=== PATIENT | female | born 1960 | race Caucasian/White ===

== ENCOUNTER 2018-08-11 10:52 | Emergency (ER) | payer MEDICAID ==
[~2018-08-11] VITALS: Ht 157.5 cm; Wt 59.0 kg
[~2018-08-11 10:52] MED LIST: EPIN0.3P3 IM
[2018-08-11 11:05] VITALS: BP 157/119
--- NOTE | 2018-08-11 12:46 | NUR ---
PT CALLED X3 TO TRIAGE, PROVIDER NOTIFIED, NO FURTHER ACTION REQUIRED
== END 2018-08-11 12:48 | disposition left against medical advice (07) ==
LOC: ER 10:55
DX: R07.89 Other chest pain (principal); Z53.21 Procedure and treatment not carried out due to patient leaving prior to being seen by health care provider
CPT/HCPCS: 93005

== ENCOUNTER 2024-03-03 09:18 | Emergency (ER) | payer MEDICAID, MEDICARE ==
[~2024-03-03] VITALS: Ht 157.5 cm; Wt 61.4 kg
[2024-03-03] MEDS ORDERED: ketorolac trometh. 30mg/ml inj. IM ONE (10:30)
[2024-03-03] MEDS: ondansetron 4mg/5ml UD cup PO ONE (10:42)
[2024-03-03] MEDS: ketorolac tromethamine 15mg/ml inj. IM ONE (10:42)
[2024-03-03 10:52] LABS: ALANINE AMINOTRANSFERASE 23 U/L (12-78); ALBUMIN 3.3 G/DL (3.4-5.0); ALBUMIN/GLOBULIN RATIO 0.7 (1.1-1.5); ALKALINE PHOSPHATASE 78 IU/L (46-116); ANION GAP 9 (8-16); ASPARTATE AMINO TRANSFERASE 14 U/L (10-37); BILIRUBIN,TOTAL 1.2 MG/DL (0.1-1.0); BLOOD UREA NITROGEN 8 MG/DL (7-18); BUN/CREATININE RATIO 11.3 (10.0-20.0); CALCIUM 9.3 MG/DL (8.5-10.1); CHLORIDE 102 MMOL/L (99-107); CREATININE 0.71 MG/DL (0.40-0.90); GLUCOSE 109 MG/DL (70-104); POTASSIUM 3.5 MMOL/L (3.5-5.1); SODIUM 137 MMOL/L (135-145); TOTAL CARBON DIOXIDE 25.9 MMOL/L (24-32); eCRCL 62 ML/MIN; eGFR 83 ML/MIN
[2024-03-03] MEDS ORDERED: GABA-530 PO (12:39)
[2024-03-03] MEDS ORDERED: CARV-50 PO (12:39)
[2024-03-03] MEDS ORDERED: SYN0.088T PO (12:39)
[2024-03-03] MEDS ORDERED: VENL25TA48 PO (12:39)
[2024-03-03] MEDS ORDERED: LOSA1TAB39 PO (12:39)
[2024-03-03] MEDS ORDERED: VERA120T19 PO (12:39)
[2024-03-03] MEDS ORDERED: ATOR20TA66 PO (12:39)
[2024-03-03 12:44] LABS: BILIRUBIN,URINE NEGATIVE (Neg); CLARITY,URINE CLEAR (Clear); COLOR,URINE YELLOW (Yellow); GLUCOSE, URINE NEGATIVE (Neg); KETONES,URINE 15 mg/dl (Neg); LEUKOCYTE ESTERASE ,URINE NEGATIVE (Neg); NITRITES, URINE NEGATIVE (Neg); OCCULT BLOOD,URINE NEGATIVE (Neg); PROTEIN,URINE NEGATIVE (Neg); UROBILINOGEN,URINE 0.2 E.U/dL (0.2-1.0)
[2024-03-03 12:45] LABS: PH,URINE 5.5 (4.8-8.0)
[2024-03-03 12:57] LABS: UA COLLECTION TYPE CLN CATCH MIDSTREAM
[2024-03-03 12:59] LABS: BASOPHILS # (AUTO) 0.1 X10'3 (0-1); BASOPHILS % 1 % (0-2); EOSINOPHILS % (AUTO) 0 % (0-6); HEMATOCRIT 38.7 % (37.7-47.9); HEMOGLOBIN 12.9 G/DL (11.5-16.0); LYMPHOCYTES # (AUTO) 0.9 X10'3 (1.1-4.8); LYMPHOCYTES % 9 % (24-44); MEAN CORPUSCULAR HEMOGLOBIN 32.4 PG (27-31.2); MEAN CORPUSCULAR HGB CONC 33.4 % (32-36); MONOCYTES # (AUTO) 0.8 X10'3 (0-0.9); MONOCYTES % 8 % (0-12); NEUTROPHILS # (AUTO) 8.4 X10'3 (1.8-7.7); PLATELET COUNT 284 X10'3 (130-400); RED BLOOD COUNT 3.99 X10'6 (3.60-4.90); RED CELL DISTRIBUTION WIDTH 12.5 % (11-16); SEGMENTED NEUTROPHILS % 82 % (36-66); WHITE BLOOD COUNT 10.3 X10'3 (4.5-11.0)
[2024-03-03 15:06] VITALS: TEMP 97.6
[2024-03-03] MEDS ORDERED: CYCL-394 PO (16:03)
[2024-03-03] MEDS ORDERED: IBUP-1985 PO (16:03)
[2024-03-03 16:05] VITALS: BP 118/80; PULSE 67; RESP 18; O2SAT 98
== END 2024-03-03 16:18 | disposition home or self-care (01) ==
LOC: ER 09:19
DX: M54.50 Low back pain, unspecified (principal); Z88.8 Allergy status to other drugs, medicaments and biological substances; Z79.899 Other long term (current) drug therapy; Z79.1 Long term (current) use of non-steroidal anti-inflammatories (NSAID); Z98.51 Tubal ligation status; Z72.89 Other problems related to lifestyle
CPT/HCPCS: 36415; 74176; 80053; 81003; 85025; 96372; 99285; J1885

== ENCOUNTER 2024-05-08 18:59 | Emergency (ER) | payer MEDICARE ==
[~2024-05-08] VITALS: Ht 157.5 cm; Wt 58.9 kg
[~2024-05-08 18:59] MED LIST changes: +IBUP-1985 PO
[2024-05-08 19:00] VITALS: BP 109/67; PULSE 100; RESP 16; TEMP 98; O2SAT 99
[2024-05-08 19:59] LABS: BASOPHILS # (AUTO) 0.1 X10'3 (0-0.2); BASOPHILS % (AUTO) 1.3 % (0-1); EOSINOPHILS # (AUTO) 0.3 X10'3 (0-0.9); EOSINOPHILS % (AUTO) 5.2 % (0-6); HEMATOCRIT 36.8 % (35.0-45.0); HEMOGLOBIN 12.2 g/dl (12.0-16.0); LYMPHOCYTES # (AUTO) 1.7 X10'3 (1.1-4.8); MEAN CORPUSCULAR HEMOGLOBIN 31.9 PG (27.0-31.0); MEAN CORPUSCULAR HGB CONC 33.3 g/dL (33.0-36.5); MEAN CORPUSCULAR VOLUME 95.8 FL (78-98); MEAN PLATELET VOLUME 8.5 FL (7.4-10.4); MONOCYTES # (AUTO) 0.5 X10'3 (0-0.9); MONOCYTES % (AUTO) 7.4 % (2-12); NEUTROPHILS # (AUTO) 3.8 X10'3 (1.8-7.7); NEUTROPHILS % (AUTO) 59.1 % (42-75); PLATELET COUNT 298 X10'3 (140-440); RED BLOOD COUNT 3.84 X10'6 (4.20-5.60); RED CELL DISTRIBUTION WIDTH 13.8 % (11.5-14.5); WHITE BLOOD COUNT 6.4 X10'3 (4.5-11.0)
[2024-05-08] MEDS ORDERED: LOPE-144 PO (20:01)
[2024-05-08 20:02] LABS: ALANINE AMINOTRANSFERASE 24 U/L (12-78); ALBUMIN 3.4 G/DL (3.4-5.0); ALKALINE PHOSPHATASE 73 IU/L (46-116); ANION GAP 10 (8-16); ASPARTATE AMINO TRANSFERASE 13 U/L (10-37); BILIRUBIN,TOTAL 0.4 MG/DL (0.1-1.0); BLOOD UREA NITROGEN 13 MG/DL (7-18); BUN/CREATININE RATIO 19.4 (10.0-20.0); CHLORIDE 107 MMOL/L (99-107); CREATININE 0.67 MG/DL (0.40-0.90); GLUCOSE 100 MG/DL (70-104); POTASSIUM 4.1 MMOL/L (3.5-5.1); SODIUM 141 MMOL/L (135-145); TOTAL CARBON DIOXIDE 24.5 MMOL/L (24-32); TOTAL PROTEIN 6.7 G/DL (6.4-8.2); eCRCL 66 ML/MIN; eGFR 88 ML/MIN
[2024-05-08] MEDS: loperamide 2mg capsule PO ONE (20:50)
== END 2024-05-08 21:09 | disposition home or self-care (01) ==
LOC: ER 18:59
DX: R19.7 Diarrhea, unspecified (principal); Z88.8 Allergy status to other drugs, medicaments and biological substances; Z79.1 Long term (current) use of non-steroidal anti-inflammatories (NSAID); Z98.51 Tubal ligation status; Z72.89 Other problems related to lifestyle
CPT/HCPCS: 36415; 80053; 85025; 99283

== ENCOUNTER 2024-06-13 07:47 | Emergency (ER) | payer MEDICARE ==
[~2024-06-13] VITALS: Ht 157.5 cm; Wt 56.6 kg
[~2024-06-13 07:47] MED LIST changes: +LOPE-144 PO
[2024-06-13] MEDS: acetaminophen 325mg tablet PO ONE (10:52)
[2024-06-13] MEDS ORDERED: ACET-1008 PO (11:52)
[2024-06-13] MEDS ORDERED: ACET650T2 PO (11:53)
[2024-06-13 12:03] VITALS: BP 120/80; PULSE 83; RESP 18; TEMP 98.6; O2SAT 99
== END 2024-06-13 12:04 | disposition home or self-care (01) ==
LOC: ER 07:48
DX: M25.512 Pain in left shoulder (principal); M25.522 Pain in left elbow; R07.89 Other chest pain; K08.89 Other specified disorders of teeth and supporting structures; F41.9 Anxiety disorder, unspecified; Z98.51 Tubal ligation status; Z88.8 Allergy status to other drugs, medicaments and biological substances; Z79.1 Long term (current) use of non-steroidal anti-inflammatories (NSAID); Z72.89 Other problems related to lifestyle
CPT/HCPCS: 71101; 99284